=== PATIENT | female | born 1955 | race Caucasian/White ===

== ENCOUNTER → 2019-02-19 | Day surgery (SDC) | payer MEDICARE ==
[~2019-02-19] MED LIST: ALLEGRA; ALLEGRA-D 24 H1 EACH PO; AMBIEN5 MG PO; AMLODIPINE BESYL5 MG PO; BENTYL10 MG PO; CHLORDIAZEPOXI1 EACH PO; COLESTIPOL HCL1 GM PO; CYCLOBENZAPRINE10 MG PO; ESTRACE1 MG PO; ESTRADIOL1 MG PO; FENTANYL CITRATE/PF 100MCG/2 ML INJ ONE; FINACEA50 GM TOP; FUROSEMIDE40 MG PO; HYOSCYAMINE 0.125 MG TAB ONE; LANTUS SC; LISINOPRIL-HCT1 EACH; LISINOPRIL10 MG PO; MELOXICAM7.5 MG PO; METFORMIN HCL500 MG PO; MIDAZOLAM HCL 2 MG/2 ML VIAL ONE; MONODOX PO; MUCINEX D ER T1 EAC1; MUCINEX DM ER1 EACH PO; NEXIUM PO; NEXIUM40 MG PO; ONDANSETRON HCL INJ 2MG/ML 2ML 2 MG/ML VIAL ONE; POTASSIUM PO; PROPOFOL IV EMULSION 10 MG/ML 50 ML VIAL ONE; SIMETHICONE 40 MG/0.6 ML BTL ONE; SPIRONOLACTONE25 MG PO; SUCRALFATE1 GM PO; SUMATRIPTAN SUC25 MG PO; TYLENOL PO; VALACYCLOVIR500 MG PO; ZOLPIDEM TARTRA10 MG PO
[2019-02-19 09:50] VITALS: BP 106/53
--- NOTE | 2019-02-19 17:22 | Operative Report ---
DATE OF PROCEDURE: 02/19/2019 SURGEON: Akhil Whitaker MD PROCEDURE: Colonoscopy and polypectomy note. INDICATIONS FOR COLONOSCOPY: Surveillance colonoscopy, personal history of colon polyps. MEDICATIONS: The patient was done under MAC, please see anesthesiologist's note. PROCEDURE IN DETAIL: With the patient in left lateral decubitus position, a flexible fiberoptic Olympus colonoscope was inserted into the rectum with ease and advanced all the way to the cecum. A minute polyp was removed per cold biopsy forceps from the cecum. The scope was then withdrawn slowly. The ascending colon appeared to be within normal limits. A minute polyp was hot biopsied from the transverse colon. The descending, sigmoid, and rectum appeared to be within normal limits. The scope was then retroflexed into the distal rectum and small internal hemorrhoids were noted, none of which was actively bleeding. The scope was then straightened out, it was subsequently withdrawn, the patient tolerated procedure well. IMPRESSION: 1. Cecal polyp, minute, cold biopsied. 2. Transverse colon polyp, hot biopsied. 3. Internal hemorrhoids, none actively bleeding. PLAN: Follow up histology. Initiate high-fiber, low-fat diet. Initiate high-fiber supplement. The patient might benefit from a followup colonoscopy in 5 years. Akhil Whitaker MD [facility] [place] /[id number] cc: Bobby Toussaint MD
--- OUTSIDE RECORDS SUMMARY | 2019-02-26 11:49 | XMS REPORT ---
Author Author [facility] Address Unknown Phone Unavailable Care Team Providers Care Chemical Dependency Therapist Name Role Phone JENNIFER STERLING Unavailable Unavailable Problems This patient has no known problems. Allergies, Adverse Reactions, Alerts This patient has no known allergies or adverse reactions. Medications This patient has no known medications. Results Test Description Test Time Test Comments Text Results Atomic Results Result Comments MRI MRCP [facility] 2019-01-07 15:00:00 [place] [address] Patient Name: SE OLIVA MR #: [id number] : 1955 Age/Sex: 63/F Req #: [id number] Adm Physician: Ordered by: JENNIFER STERLING MD Report #: [id number] Location: MRI Room/Bed: Procedure: [id number] MRI/MRI MRCP [facility] Exam Date: Exam Time: REPORT STATUS: Signed EXAM: MRI MRCP [facility] DATE: 01/06/2019 8:10 AM INDICATION: Abdominal CT. COMPARISON: None available. TECHNIQUE: Multi planar, multi sequential MRI images of the abdomen were obtained before and after administration of 17 mL of MultiHance. MRCP images were obtained. FINDINGS: Lung bases are unremarkable. Mild hepatic parenchymal signal loss on out of phase imaging, suggestive of mild steatosis. Hepatomegaly. No hepatic mass. Gallbladder is surgically absent. Moderate common bile duct dilatation, up to 1.6 cm, likely due to postcholecystectomy reservoir effect. Gradual distal tapering without evidence of filling defects. 2.6 x 2.4 cm proximal pancreatic tail T2 hyperintense, T1 hypointense lesion with thin internal septations without gross evidence of postcontrast enhancement. Communication with main pancreatic duct is questionable and cannot be determined with certainty. No pancreatic ductal dilatation. Spleen, adrenal glands, and kidneys are unremarkable. No renal mass. No hydronephrosis. Visualized bowel loops are unremarkable. No evidence of bowel obstruction. No upper abdominal free fluid or lymphadenopathy. The soft tissues and bones are unremarkable. IMPRESSION: 1. Proximal pancreatic tail cystic lesion, measuring 2.6 cm. Differentials include serous cystic neoplasm, side branch IPMN, pseudocyst with history of pancreatitis, and less likely mucinous cystic neoplasm. 2. Enlarged steatotic liver. Signed by: Dr. Stanislav Mcconnell MD on 01/07/2019 3:22 PM Dictated By: STANISLAV MCCONNELL MD 1522 Transcribed By: RIGO on 01/07/19 1522 COPY TO: JENNIFER STERLING MD
== END | disposition home or self-care (01) ==
LOC: OR 05:56
PROVIDERS: ATTEND Internal Medicine Gastroenterology
DX: K52.9 Noninfective gastroenteritis and colitis, unspecified (principal); D12.0 Benign neoplasm of cecum; K29.70 Gastritis, unspecified, without bleeding; K20.9 Esophagitis, unspecified; K64.8 Other hemorrhoids; K21.9 Gastro-esophageal reflux disease without esophagitis; I10 Essential (primary) hypertension; J45.909 Unspecified asthma, uncomplicated; E11.9 Type 2 diabetes mellitus without complications; Z88.1 Allergy status to other antibiotic agents; Z88.0 Allergy status to penicillin; Z88.2 Allergy status to sulfonamides; Z01.810 Encounter for preprocedural cardiovascular examination; Z79.4 Long term (current) use of insulin; Z87.891 Personal history of nicotine dependence
CPT/HCPCS: 36415; 45380; 45384; 82948; 88305; 93005; J2250; J2405; J3010; 45378

== ENCOUNTER → 2019-10-27 | Outpatient (CLI) | payer MEDICARE, OTHER ==
[~2019-10-27] MED LIST changes: +GADOBENATE DIMEGLUMINE 1 ML IV ONE; -HYOSCYAMINE 0.125 MG TAB ONE; +LACTATED RINGER'S 1,000 ML ONE; -MIDAZOLAM HCL 2 MG/2 ML VIAL ONE; +MIDAZOLAM HCL 5 MG/ML VIAL ONE; -ONDANSETRON HCL INJ 2MG/ML 2ML 2 MG/ML VIAL ONE; -PROPOFOL IV EMULSION 10 MG/ML 50 ML VIAL ONE; -SIMETHICONE 40 MG/0.6 ML BTL ONE; +SODIUM CHLORIDE 0.9% 50ML 50 ML ONE
[2019-10-27 11:49] LABS: BASOPHILS # (AUTO) 0.1 (0.0-0.1); BASOPHILS % 0.5 % (0.0-1.0); EOSINOPHILS # (AUTO) 0.5 (0.0-0.4); EOSINOPHILS % 5.5 % (0.0-6.0); HEMATOCRIT 43.1 % (34.2-44.1); HEMOGLOBIN 13.9 g/dL (12.0-16.0); LYMPHOCYTES # (AUTO) 3.2 (1.0-3.2); LYMPHOCYTES % 34.6 % (18.0-39.1); MEAN CORPUSCULAR HEMOGLOBIN 27.1 pg (28-32); MEAN CORPUSCULAR HGB CONC 32.3 g/dL (31-35); MONOCYTES # (AUTO) 0.7 (0.2-0.8); MONOCYTES % 7.8 % (4.4-11.3); NEUTROPHILS # (AUTO) 4.8 (2.1-6.9); NEUTROPHILS % 51.3 % (38.7-80.0); PLATELET COUNT 401 x10e3/uL (140-360); RED BLOOD COUNT 5.13 x10e6/uL (3.6-5.1); RED CELL DISTRIBUTION WIDTH 13.7 % (11.7-14.4)
[2019-10-27 12:06] LABS: ANION GAP 14.2 mmol/L (8-16); BLOOD UREA NITROGEN 8 mg/dL (7-26); BUN/CREATININE RATIO 9 (6-25); CARBON DIOXIDE 23 mmol/L (22-29); CHLORIDE 105 mmol/L (98-107); CREATININE, SERUM 0.89 mg/dL (0.57-1.11); EST GLOMERULAR FILTRATION RATE > 60 ML/MIN (60-); GLUCOSE 153 mg/dL (74-118); POTASSIUM 4.2 mmol/L (3.5-5.1); SODIUM 138 mmol/L (136-145)
--- NOTE | 2019-10-27 12:08 | Diagnostic Imaging Report ---
Exam: CHEST 2 VIEWS Date: 10/27/2019 12:04 PM Indication: Preoperative evaluation for anesthesia Comparison: None FINDINGS: Lines/Tubes:None Lungs:The lungs are well inflated. No focal consolidation or pulmonary edema. Pleura:No pleural effusion. No pneumothorax. Heart/Mediastinum:The cardiomediastinal silhouette is normal in size and contour. Bones/Soft Tissues: No acute osseous abnormality. Mild multilevel degenerative changes of the spine are noted. Upper abdomen: Cholecystectomy clips are noted in the right upper quadrant. IMPRESSION: Negative for acute intrathoracic process. Signed by: Ulysses Chino MD on 10/27/2019 12:05 PM
--- NOTE | 2019-10-27 14:48 | Diagnostic Imaging Report ---
EXAM: MRI of the abdomen with and without contrast with MRCP INDICATION: Pancreatic cyst. COMPARISON: 01/06/2019. TECHNIQUE: Multiplanar and multisequence imaging was performed of the abdomen. T1 and T2-weighted images were obtained with and without contrast. T1-weighted in and [id number] , Dynamic, post gadolinium T1-weighted spoiled gradient echo scans. 17 cc of gadolinium were administered intravenously. M.R.C.P. technique: Multiplanar, multisequence MRCP was performed, with sequences including coronal turbo spin-echo T1-weighted scans, [facility] MRCP scans, coronal spin, coronal MPR 2[facility], [facility] MRCP [place]. Discussion: LOWER THORAX: Unremarkable. HEPATOBILIARY: There is diffuse loss of signal on out of phase images, consistent with diffuse hepatic steatosis. No focal hepatic lesions. Prominence of the common bile duct measuring up to 1.6 cm likely related to reservoir effect from postcholecystectomy state.. There is normal tapering at ampulla. No filling defect. No intrahepatic biliary ductal dilation. GALLBLADDER: Status post cholecystectomy. SPLEEN: No splenomegaly. PANCREAS: Pancreas demonstrates normal T1 signal intensity and enhancement. Stable 3 x 2.6 x 2.8 cm cystic focus within the proximal pancreatic tail containing multiple internal septations. It is indeterminate whether the lesion communicates with the main pancreatic duct.No pancreatic duct dilation. There is no enhancing nodule. ADRENALS: No adrenal nodules KIDNEYS/URETERS: Kidneys enhance symmetrically. No hydronephrosis. No cystic or solid mass lesions. No stones. GI TRACT: No abnormal distention, wall thickening, or evidence of bowel obstruction. Appendix is normal. LYMPH NODES: No lymphadenopathy. VESSELS: Unremarkable. PERITONEUM / RETROPERITONEUM: No free air or fluid. BONES: Unremarkable. SOFT TISSUES: Unremarkable. IMPRESSION: 3 cm cystic lesion in the proximal pancreatic body, not significantly changed in size since December 2018. Signed by: Shahid Ledbetter MD on 10/27/2019 2:45 PM
== END ==
LOC: MRI 11:20
PROVIDERS: ATTEND Internal Medicine Gastroenterology
DX: K86.2 Cyst of pancreas (principal); Z11.59 Encounter for screening for other viral diseases
CPT/HCPCS: 36415; 71046; 74183; 80048; 82948; 85025; 93005; A9577; J7121; U0002

== ENCOUNTER 2019-11-25 19:15 | Inpatient (IN) | payer BC, MEDICARE ==
[~2019-11-25] VITALS: Ht 162.6 cm; Wt 76.2 kg
[~2019-11-25 19:15] MED LIST changes: -CARAFATE1 GM/10 ML PO; -COLACE100 MG PO; -FENTANYL CITRATE/PF 100MCG/2 ML INJ ONE; -LANTUS 3ML100 UNITS/ SC; -LIDOCAINE HCL 2% LOCAL INJ 5 ML SDV VIAL INJ ONE; -METRONIDAZOLE500 MG PO; -MIDAZOLAM HCL 2 MG/2 ML VIAL ONE; -ONDANSETRON HCL INJ 2MG/ML 2ML 2 MG/ML VIAL ONE; -PANTOPRAZOLE 40 MG 10ML VIAL ONE; -PANTOPRAZOLE SO40 MG PO; -PROPOFOL IV EMULSION 10 MG/ML 20 ML VIAL ONE; -TYLENOL # 31 EA PO; -TYLENOL325 M2 PO; -ZOFRAN4 MG PO
[2019-11-25] MEDS ORDERED: PANTOPRAZOLE 40 MG 10ML VIAL IV STA (20:08)
[2019-11-25] MEDS ORDERED: MORPHINE SULFATE 2 MG/ML SYR 1ML IV STA (20:08)
[2019-11-25] MEDS ORDERED: ONDANSETRON HCL INJ 2MG/ML 2ML 2 MG/ML VIAL IV STA (20:08)
[2019-11-25 20:24] LABS: BASOPHILS # (AUTO) 0.1 (0.0-0.1); BASOPHILS % 0.3 % (0.0-1.0); EOSINOPHILS % 0.1 % (0.0-6.0); HEMATOCRIT 41.5 % (34.2-44.1); HEMOGLOBIN 13.7 g/dL (12.0-16.0); LYMPHOCYTES # (AUTO) 1.4 (1.0-3.2); LYMPHOCYTES % 7.9 % (18.0-39.1); MEAN CORPUSCULAR HEMOGLOBIN 27.2 pg (28-32); MEAN CORPUSCULAR VOLUME 82.3 fL (81-99); MONOCYTES # (AUTO) 0.7 (0.2-0.8); NEUTROPHILS # (AUTO) 15.5 (2.1-6.9); NEUTROPHILS % 87.2 % (38.7-80.0); PLATELET COUNT 403 x10e3/uL (140-360); RED BLOOD COUNT 5.04 x10e6/uL (3.6-5.1); RED CELL DISTRIBUTION WIDTH 13.9 % (11.7-14.4)
[2019-11-25 20:35] LABS: INR 0.87; PROTHROMBIN TIME 12.3 seconds (11.9-14.5)
[2019-11-25 20:36] LABS: PARTIAL THROMBOPLASTIN TIME 23.6 seconds (23.8-35.5)
[2019-11-25] MEDS: SODIUM CHLORIDE 0.9% 1000ML 1,000 ML IV SCH ×2 (20:39→23:46)
[2019-11-25 20:45] LABS: ALBUMIN 4.3 g/dL (3.5-5.0); ALBUMIN/GLOBULIN RATIO 1.4 (0.8-2.0); ANION GAP 17.6 mmol/L (8-16); CALCIUM 9.3 mg/dL (8.4-10.2); CREATININE, SERUM 1.17 mg/dL (0.57-1.11); POTASSIUM 4.6 mmol/L (3.5-5.1)
[2019-11-25 20:53] LABS: CREATINE KINASE MB 1.7 ng/mL (0-5.0)
[2019-11-25] MEDS ORDERED: DICYCLOMINE HCL 20 MG/2 ML VIAL IM ONE (22:15)
[2019-11-25] MEDS ORDERED: IOPAMIDOL 370 MG/ML 200 ML INFUS..BTL INJ ONE (22:23)
[2019-11-25] MEDS ORDERED: SODIUM CHLORIDE 0.9% 100 ML ONE (22:23)
[2019-11-25] MEDS: CEFTRIAXONE SOD 1 GM/NS 50 ML 50 ML IV SCH (23:46)
[2019-11-26] VITALS (10 sets, daily range): BP systolic 148–175; BP diastolic 61–70
[2019-11-26] MEDS: METRONIDAZOLE 500MG/NS 100ML 100 ML IV SCH ×5 (00:35→22:58)
[2019-11-26] MEDS ORDERED: HYDROMORPHONE 1MG/1ML INJ IV STA (01:02)
[2019-11-26] MEDS ORDERED: CARAFATE1 GM/10 ML PO (01:10)
[2019-11-26] MEDS ORDERED: COLESTIPOL HCL1 GM PO (01:10)
[2019-11-26] MEDS ORDERED: FUROSEMIDE40 MG PO (01:10)
[2019-11-26] MEDS ORDERED: LANTUS 3ML100 UNITS/ SC (01:10)
[2019-11-26] MEDS ORDERED: COLACE100 MG PO (01:10)
[2019-11-26] MEDS: ONDANSETRON HCL INJ 2MG/ML 2ML 2 MG/ML VIAL IV PRN ×2 (02:07→21:43)
[2019-11-26 05:56] LABS: HEMATOCRIT 39.1 % (34.2-44.1); HEMOGLOBIN 12.8 g/dL (12.0-16.0)
[2019-11-26] MEDS: SODIUM CHLORIDE 0.9% 1000ML 1,000 ML IV SCH ×4 (06:15→21:40)
[2019-11-26 06:19] LABS: ALANINE AMINOTRANSFERASE 23 IU/L (0-55); ALBUMIN 4.2 g/dL (3.5-5.0); ALBUMIN/GLOBULIN RATIO 1.7 (0.8-2.0); ALKALINE PHOSPHATASE 64 IU/L (40-150); ANION GAP 12.3 mmol/L (8-16); BLOOD UREA NITROGEN 8 mg/dL (7-26); BUN/CREATININE RATIO 10 (6-25); CALCIUM 8.9 mg/dL (8.4-10.2); CARBON DIOXIDE 19 mmol/L (22-29); CHLORIDE 106 mmol/L (98-107); CREATININE, SERUM 0.78 mg/dL (0.57-1.11); EST GLOMERULAR FILTRATION RATE > 60 ML/MIN (60-); GLUCOSE 180 mg/dL (74-118); POTASSIUM 4.3 mmol/L (3.5-5.1); SODIUM 133 mmol/L (136-145)
[2019-11-26] MEDS: HYDROCODONE/APAP 5MG-325MG TAB PO PRN ×3 (06:40→21:44)
[2019-11-26] MEDS ORDERED: DEXTROSE 50% SYRINGE 50 ML IV PRN (09:15)
[2019-11-26] MEDS: PANTOPRAZOLE 40 MG 10ML VIAL IV SCH (09:34)
[2019-11-26] MEDS: LISINOPRIL 20 MG TAB PO SCH (09:34)
[2019-11-26 12:24] LABS: HEMATOCRIT 39.1 % (34.2-44.1); HEMOGLOBIN 12.9 g/dL (12.0-16.0)
[2019-11-26] MEDS: INSULIN REGULAR, HUMAN 100 UNIT/1 ML 3ML VIAL SQ SCH ×3 (12:30→19:58)
[2019-11-26] MEDS: AMLODIPINE BESYLATE 10 MG TAB PO SCH (19:51)
[2019-11-26 21:00] LABS: HEMATOCRIT 37.9 % (34.2-44.1); HEMOGLOBIN 12.5 g/dL (12.0-16.0)
[2019-11-26] MEDS: CEFTRIAXONE SOD 1 GM/NS 50 ML 50 ML IV SCH (21:55)
[2019-11-26] MEDS ORDERED: CITRATE OF MAGNESIA 300ML BOTTLE PO ONE (22:45)
[2019-11-27] VITALS (10 sets, daily range): BP systolic 129–155; BP diastolic 60–73
[2019-11-27 00:47] LABS: BASOPHILS % 0.2 % (0.0-1.0); EOSINOPHILS # (AUTO) 0.1 (0.0-0.4); EOSINOPHILS % 0.5 % (0.0-6.0); HEMATOCRIT 37.4 % (34.2-44.1); HEMOGLOBIN 12.3 g/dL (12.0-16.0); LYMPHOCYTES # (AUTO) 3.4 (1.0-3.2); LYMPHOCYTES % 18.3 % (18.0-39.1); MEAN CORPUSCULAR HEMOGLOBIN 27.2 pg (28-32); MEAN CORPUSCULAR HGB CONC 32.9 g/dL (31-35); MEAN CORPUSCULAR VOLUME 82.7 fL (81-99); MONOCYTES # (AUTO) 1.7 (0.2-0.8); MONOCYTES % 9.3 % (4.4-11.3); NEUTROPHILS % 71.1 % (38.7-80.0); PLATELET COUNT 332 x10e3/uL (140-360); RED BLOOD COUNT 4.52 x10e6/uL (3.6-5.1); RED CELL DISTRIBUTION WIDTH 14.1 % (11.7-14.4)
[2019-11-27] MEDS ORDERED: BISACODYL 5 MG TAB EC PO ONE ×2 (01:00)
[2019-11-27 01:04] LABS: ANION GAP 11.7 mmol/L (8-16); BLOOD UREA NITROGEN 5 mg/dL (7-26); BUN/CREATININE RATIO 7 (6-25); CALCIUM 8.8 mg/dL (8.4-10.2); CARBON DIOXIDE 20 mmol/L (22-29); CHLORIDE 105 mmol/L (98-107); CREATININE, SERUM 0.68 mg/dL (0.57-1.11); EST GLOMERULAR FILTRATION RATE > 60 ML/MIN (60-); GLUCOSE 156 mg/dL (74-118); POTASSIUM 3.7 mmol/L (3.5-5.1); SODIUM 133 mmol/L (136-145)
[2019-11-27] MEDS: HYDROCODONE/APAP 5MG-325MG TAB PO PRN ×4 (03:50→22:08)
[2019-11-27] MEDS ORDERED: CITRATE OF MAGNESIA 300ML BOTTLE PO ONE (05:00)
[2019-11-27] MEDS: METRONIDAZOLE 500MG/NS 100ML 100 ML IV SCH ×3 (05:00→17:26)
[2019-11-27] MEDS: SODIUM CHLORIDE 0.9% 1000ML 1,000 ML IV SCH ×2 (05:55→16:21)
[2019-11-27 06:53] LABS: BASOPHILS # (AUTO) 0.1 (0.0-0.1); BASOPHILS % 0.4 % (0.0-1.0); EOSINOPHILS # (AUTO) 0.1 (0.0-0.4); EOSINOPHILS % 0.7 % (0.0-6.0); HEMOGLOBIN 11.6 g/dL (12.0-16.0); LYMPHOCYTES # (AUTO) 2.3 (1.0-3.2); LYMPHOCYTES % 15.1 % (18.0-39.1); MEAN CORPUSCULAR HEMOGLOBIN 28.2 pg (28-32); MEAN CORPUSCULAR HGB CONC 33.1 g/dL (31-35); MONOCYTES # (AUTO) 1.3 (0.2-0.8); MONOCYTES % 8.4 % (4.4-11.3); NEUTROPHILS # (AUTO) 11.6 (2.1-6.9); NEUTROPHILS % 75.1 % (38.7-80.0); PLATELET COUNT 268 x10e3/uL (140-360); RED BLOOD COUNT 4.12 x10e6/uL (3.6-5.1); RED CELL DISTRIBUTION WIDTH 14.2 % (11.7-14.4)
[2019-11-27] MEDS: INSULIN REGULAR, HUMAN 100 UNIT/1 ML 3ML VIAL SQ SCH ×4 (07:30→21:00)
[2019-11-27] MEDS: LISINOPRIL 20 MG TAB PO SCH (09:41)
[2019-11-27] MEDS: PANTOPRAZOLE 40 MG 10ML VIAL IV SCH (09:41)
[2019-11-27 10:05] LABS: WBC,FECAL (FECAL LACTOFERRIN) POSITIVE (NEGATIVE)
[2019-11-27 14:37] LABS: C DIFFICILE TOXIN A&B AMP PROB NEGATIVE (NEGATIVE)
[2019-11-27] MEDS: HYDROCHLOROTHIAZIDE 25 MG TAB PO SCH (21:51)
[2019-11-27] MEDS: AMLODIPINE BESYLATE 10 MG TAB PO SCH (21:51)
[2019-11-27] MEDS: CEFTRIAXONE SOD 1 GM/NS 50 ML 50 ML IV SCH (21:53)
[2019-11-27] MEDS: ONDANSETRON HCL INJ 2MG/ML 2ML 2 MG/ML VIAL IV PRN (22:08)
[2019-11-28] VITALS (11 sets, daily range): BP systolic 116–135; BP diastolic 57–82
[2019-11-28] MEDS: METRONIDAZOLE 500MG/NS 100ML 100 ML IV SCH ×4 (04:46→17:36)
[2019-11-28] MEDS: ONDANSETRON HCL INJ 2MG/ML 2ML 2 MG/ML VIAL IV PRN ×2 (06:19→20:11)
[2019-11-28] MEDS: HYDROCODONE/APAP 5MG-325MG TAB PO PRN ×3 (06:19→20:10)
[2019-11-28 07:19] LABS: BASOPHILS % 0.3 % (0.0-1.0); EOSINOPHILS # (AUTO) 0.4 (0.0-0.4); EOSINOPHILS % 3.2 % (0.0-6.0); HEMATOCRIT 34.2 % (34.2-44.1); HEMOGLOBIN 11.1 g/dL (12.0-16.0); LYMPHOCYTES # (AUTO) 2.5 (1.0-3.2); MEAN CORPUSCULAR HEMOGLOBIN 27.2 pg (28-32); MEAN CORPUSCULAR HGB CONC 32.5 g/dL (31-35); MEAN CORPUSCULAR VOLUME 83.8 fL (81-99); MONOCYTES % 8.6 % (4.4-11.3); NEUTROPHILS % 66.4 % (38.7-80.0); PLATELET COUNT 272 x10e3/uL (140-360); RED BLOOD COUNT 4.08 x10e6/uL (3.6-5.1)
[2019-11-28] MEDS: INSULIN REGULAR, HUMAN 100 UNIT/1 ML 3ML VIAL SQ SCH ×4 (07:30→20:11)
[2019-11-28] MEDS: HYDROCHLOROTHIAZIDE 25 MG TAB PO SCH (09:35)
[2019-11-28] MEDS: LISINOPRIL 20 MG TAB PO SCH (09:35)
[2019-11-28] MEDS: PANTOPRAZOLE 40 MG 10ML VIAL IV SCH (09:35)
[2019-11-28] MEDS ORDERED: SODIUM CHLORIDE 0.9% 1000ML 1,000 ML IV SCH (17:15)
[2019-11-28] MEDS: AMLODIPINE BESYLATE 10 MG TAB PO SCH (20:11)
[2019-11-28] MEDS: CEFTRIAXONE SOD 1 GM/NS 50 ML 50 ML IV SCH (23:26)
[2019-11-29] VITALS (11 sets, daily range): BP systolic 113–146; BP diastolic 51–67
[2019-11-29] MEDS: METRONIDAZOLE 500MG/NS 100ML 100 ML IV SCH ×4 (00:38→17:37)
[2019-11-29] MEDS: HYDROCODONE/APAP 5MG-325MG TAB PO PRN ×2 (02:01→20:11)
[2019-11-29 06:18] LABS: BASOPHILS # (AUTO) 0.1 (0.0-0.1); BASOPHILS % 0.7 % (0.0-1.0); EOSINOPHILS # (AUTO) 0.5 (0.0-0.4); EOSINOPHILS % 4.9 % (0.0-6.0); HEMATOCRIT 33.5 % (34.2-44.1); HEMOGLOBIN 11.1 g/dL (12.0-16.0); LYMPHOCYTES # (AUTO) 2.4 (1.0-3.2); LYMPHOCYTES % 26.2 % (18.0-39.1); MEAN CORPUSCULAR HEMOGLOBIN 27.1 pg (28-32); MEAN CORPUSCULAR HGB CONC 33.1 g/dL (31-35); MEAN CORPUSCULAR VOLUME 81.9 fL (81-99); MONOCYTES # (AUTO) 0.9 (0.2-0.8); NEUTROPHILS # (AUTO) 5.3 (2.1-6.9); NEUTROPHILS % 57.7 % (38.7-80.0); PLATELET COUNT 286 x10e3/uL (140-360); RED BLOOD COUNT 4.09 x10e6/uL (3.6-5.1); RED CELL DISTRIBUTION WIDTH 13.7 % (11.7-14.4)
[2019-11-29 06:43] LABS: ANION GAP 14.2 mmol/L (8-16); BLOOD UREA NITROGEN < 5 mg/dL (7-26); BUN/CREATININE RATIO 8 (6-25); CALCIUM 8.7 mg/dL (8.4-10.2); CARBON DIOXIDE 22 mmol/L (22-29); CHLORIDE 102 mmol/L (98-107); CREATININE, SERUM 0.66 mg/dL (0.57-1.11); EST GLOMERULAR FILTRATION RATE > 60 ML/MIN (60-); GLUCOSE 144 mg/dL (74-118); POTASSIUM 3.2 mmol/L (3.5-5.1); SODIUM 135 mmol/L (136-145)
[2019-11-29] MEDS: INSULIN REGULAR, HUMAN 100 UNIT/1 ML 3ML VIAL SQ SCH ×4 (07:30→21:00)
[2019-11-29] MEDS: PANTOPRAZOLE 40 MG 10ML VIAL IV SCH (08:38)
[2019-11-29] MEDS: LISINOPRIL 20 MG TAB PO SCH (08:38)
[2019-11-29] MEDS: HYDROCHLOROTHIAZIDE 25 MG TAB PO SCH (08:38)
[2019-11-29] MEDS ORDERED: POTASSIUM CHLORIDE 20 MEQ TAB CR PO ONE (13:30)
[2019-11-29] MEDS: AMLODIPINE BESYLATE 10 MG TAB PO SCH (20:21)
[2019-11-29] MEDS: CEFTRIAXONE SOD 1 GM/NS 50 ML 50 ML IV SCH (23:00)
[2019-11-30] VITALS (8 sets, daily range): BP systolic 122–153; BP diastolic 54–88
[2019-11-30] MEDS ORDERED: CITRATE OF MAGNESIA 300ML BOTTLE PO ONE ×2 (05:00→07:00)
[2019-11-30] MEDS: METRONIDAZOLE 500MG/NS 100ML 100 ML IV SCH ×4 (06:00→18:00)
[2019-11-30 06:18] LABS: BASOPHILS % 0.6 % (0.0-1.0); EOSINOPHILS # (AUTO) 0.4 (0.0-0.4); EOSINOPHILS % 5.2 % (0.0-6.0); HEMATOCRIT 33.5 % (34.2-44.1); HEMOGLOBIN 10.9 g/dL (12.0-16.0); LYMPHOCYTES # (AUTO) 2.4 (1.0-3.2); LYMPHOCYTES % 34.3 % (18.0-39.1); MEAN CORPUSCULAR HEMOGLOBIN 26.8 pg (28-32); MEAN CORPUSCULAR HGB CONC 32.5 g/dL (31-35); MEAN CORPUSCULAR VOLUME 82.5 fL (81-99); MONOCYTES # (AUTO) 0.8 (0.2-0.8); MONOCYTES % 11.7 % (4.4-11.3); NEUTROPHILS # (AUTO) 3.3 (2.1-6.9); NEUTROPHILS % 47.6 % (38.7-80.0); PLATELET COUNT 306 x10e3/uL (140-360); RED BLOOD COUNT 4.06 x10e6/uL (3.6-5.1); RED CELL DISTRIBUTION WIDTH 13.9 % (11.7-14.4)
[2019-11-30] MEDS ORDERED: BISACODYL 5 MG TAB EC PO ONE ×4 (06:30→07:00)
[2019-11-30 06:37] LABS: ANION GAP 12.5 mmol/L (8-16); BLOOD UREA NITROGEN < 5 mg/dL (7-26); CARBON DIOXIDE 24 mmol/L (22-29); CHLORIDE 106 mmol/L (98-107); CREATININE, SERUM 0.68 mg/dL (0.57-1.11); EST GLOMERULAR FILTRATION RATE > 60 ML/MIN (60-); GLUCOSE 115 mg/dL (74-118); MAGNESIUM 1.7 MG/DL (1.3-2.1); PHOSPHORUS 3.6 MG/DL (2.3-4.7); POTASSIUM 3.5 mmol/L (3.5-5.1); SODIUM 139 mmol/L (136-145)
[2019-11-30 06:38] LABS: BUN/CREATININE RATIO 7 (6-25)
[2019-11-30] MEDS: INSULIN REGULAR, HUMAN 100 UNIT/1 ML 3ML VIAL SQ SCH ×4 (07:30→21:00)
[2019-11-30] MEDS: HYDROCHLOROTHIAZIDE 25 MG TAB PO SCH (09:00)
[2019-11-30] MEDS: LISINOPRIL 20 MG TAB PO SCH (09:00)
[2019-11-30] MEDS: PANTOPRAZOLE 40 MG 10ML VIAL IV SCH (09:32)
[2019-11-30] MEDS: ONDANSETRON HCL INJ 2MG/ML 2ML 2 MG/ML VIAL IV PRN (09:32)
[2019-11-30] MEDS ORDERED: MIDAZOLAM HCL 2 MG/2 ML VIAL ONE (13:12)
[2019-11-30] MEDS ORDERED: FENTANYL CITRATE/PF 100MCG/2 ML INJ ONE (13:12)
[2019-11-30] MEDS ORDERED: ACETAMINOPHEN 325 MG TAB PO PRN (13:45)
[2019-11-30] MEDS ORDERED: HYDRALAZINE HCL 20 MG/ML VIAL IV PRN (13:45)
[2019-11-30 15:21] LABS: WBC,FECAL (FECAL LACTOFERRIN) NEGATIVE (NEGATIVE)
[2019-11-30] MEDS ORDERED: LIDOCAINE HCL 2% LOCAL INJ 5 ML SDV VIAL INJ ONE (19:16)
[2019-11-30] MEDS ORDERED: PROPOFOL IV EMULSION 10 MG/ML 20 ML VIAL ONE (19:16)
[2019-11-30] MEDS: AMLODIPINE BESYLATE 10 MG TAB PO SCH (20:58)
[2019-11-30] MEDS: HYDROCODONE/APAP 5MG-325MG TAB PO PRN (21:30)
[2019-11-30] MEDS: CEFTRIAXONE SOD 1 GM/NS 50 ML 50 ML IV SCH (23:00)
[2019-12-01] VITALS: BP 132/70
[2019-12-01] MEDS: HYDROCODONE/APAP 5MG-325MG TAB PO PRN ×3 (03:09→12:21)
[2019-12-01 04:00] VITALS: BP 129/57
[2019-12-01] MEDS: METRONIDAZOLE 500MG/NS 100ML 100 ML IV SCH ×3 (05:50→11:54)
[2019-12-01 06:12] LABS: BASOPHILS % 0.5 % (0.0-1.0); EOSINOPHILS # (AUTO) 0.3 (0.0-0.4); EOSINOPHILS % 4.9 % (0.0-6.0); HEMATOCRIT 34.1 % (34.2-44.1); HEMOGLOBIN 11.1 g/dL (12.0-16.0); LYMPHOCYTES # (AUTO) 2.4 (1.0-3.2); LYMPHOCYTES % 36.1 % (18.0-39.1); MEAN CORPUSCULAR HEMOGLOBIN 26.7 pg (28-32); MEAN CORPUSCULAR HGB CONC 32.6 g/dL (31-35); MONOCYTES # (AUTO) 0.8 (0.2-0.8); MONOCYTES % 11.5 % (4.4-11.3); NEUTROPHILS # (AUTO) 3.1 (2.1-6.9); NEUTROPHILS % 46.5 % (38.7-80.0); PLATELET COUNT 329 x10e3/uL (140-360); RED BLOOD COUNT 4.16 x10e6/uL (3.6-5.1); RED CELL DISTRIBUTION WIDTH 13.8 % (11.7-14.4)
[2019-12-01 06:33] LABS: ALANINE AMINOTRANSFERASE 20 IU/L (0-55); ALBUMIN 3.7 g/dL (3.5-5.0); ALBUMIN/GLOBULIN RATIO 1.6 (0.8-2.0); ALKALINE PHOSPHATASE 41 IU/L (40-150); ANION GAP 13.4 mmol/L (8-16); BLOOD UREA NITROGEN 5 mg/dL (7-26); BUN/CREATININE RATIO 7 (6-25); CALCIUM 8.7 mg/dL (8.4-10.2); CARBON DIOXIDE 24 mmol/L (22-29); CHLORIDE 106 mmol/L (98-107); CREATININE, SERUM 0.69 mg/dL (0.57-1.11); EST GLOMERULAR FILTRATION RATE > 60 ML/MIN (60-); GLUCOSE 111 mg/dL (74-118); POTASSIUM 3.4 mmol/L (3.5-5.1); SODIUM 140 mmol/L (136-145)
[2019-12-01] MEDS: INSULIN REGULAR, HUMAN 100 UNIT/1 ML 3ML VIAL SQ SCH ×2 (07:30→11:54)
[2019-12-01 08:12] VITALS: BP 114/58
[2019-12-01 08:27] VITALS: BP 114/58
[2019-12-01] MEDS: PANTOPRAZOLE 40 MG 10ML VIAL IV SCH (09:00)
[2019-12-01] MEDS: HYDROCHLOROTHIAZIDE 25 MG TAB PO SCH (09:00)
[2019-12-01] MEDS: LISINOPRIL 20 MG TAB PO SCH (09:00)
[2019-12-01 11:34] VITALS: BP 119/59
[2019-12-01] MEDS ORDERED: TYLENOL # 31 EA PO (12:13)
[2019-12-01] MEDS ORDERED: PANTOPRAZOLE SO40 MG PO ×2 (12:13→12:37)
[2019-12-01] MEDS ORDERED: METRONIDAZOLE500 MG PO (12:13)
[2019-12-01] MEDS ORDERED: ZOFRAN4 MG PO (12:13)
[2019-12-01] MEDS ORDERED: TYLENOL325 M2 PO (12:27)
[2019-12-01] MEDS ORDERED: POTASSIUM CHLORIDE 20 MEQ TAB CR PO ONE (13:00)
[2019-12-01 14:23] LABS: C DIFFICILE TOXIN A&B AMP PROB NEGATIVE (NEGATIVE)
== END 2019-12-01 14:13 | disposition home or self-care (01) | DRG 872 ==
LOC: ER 20:12 → ERHOLD 23:01 → MED/SURG3 11-26 00:20
PROVIDERS: ADMIT Internal Medicine; ATTEND Internal Medicine
PROC: 0DBM8ZX Excision of Descending Colon, Via Natural or Artificial Opening Endoscopic, Diagnostic (ICD-10-PCS; principal; 2019-11-25)
PROC: 0DBN8ZX Excision of Sigmoid Colon, Via Natural or Artificial Opening Endoscopic, Diagnostic (ICD-10-PCS; 2019-11-25)
DX: A41.9 Sepsis, unspecified organism (principal); K55.9 Vascular disorder of intestine, unspecified; E87.1 Hypo-osmolality and hyponatremia; N17.9 Acute kidney failure, unspecified; K63.3 Ulcer of intestine; A09 Infectious gastroenteritis and colitis, unspecified; E11.9 Type 2 diabetes mellitus without complications; K21.9 Gastro-esophageal reflux disease without esophagitis; I10 Essential (primary) hypertension; E87.6 Hypokalemia; J45.909 Unspecified asthma, uncomplicated; Z11.59 Encounter for screening for other viral diseases; K63.89 Other specified diseases of intestine
CPT/HCPCS: 36415; 43239; 45380; 74174; 80048; 80053; 82550; 82553; 82948; 83630; 83735; 83993; 84100; 84484; 85014; 85018; 85025; 85610; 85730; 86850; 86900; 87045; 87177; 87328; 87493; 88305; 93005; 99251; 99284; J0500; J0696; J1170; J1817; J2001; J2250; J2270; J2405; J3010; J7030; J7050; Q9967; U0002

== ENCOUNTER → 2019-11-25 | Day surgery (SDC) | payer BC, MEDICARE ==
[~2019-11-25] MED LIST changes: +CARAFATE1 GM/10 ML PO; +COLACE100 MG PO; +FARXIGA5 MG PO; -GADOBENATE DIMEGLUMINE 1 ML IV ONE; -LACTATED RINGER'S 1,000 ML ONE; +LANTUS 3ML100 UNITS/ SC; +LIDOCAINE HCL 2% LOCAL INJ 5 ML SDV VIAL INJ ONE; +LISINOPRIL-HCT1 EACH PO; +METRONIDAZOLE500 MG PO; +MIDAZOLAM HCL 2 MG/2 ML VIAL ONE; -MIDAZOLAM HCL 5 MG/ML VIAL ONE; +OMEPRAZOLE40 MG PO; +ONDANSETRON HCL INJ 2MG/ML 2ML 2 MG/ML VIAL ONE; +PANTOPRAZOLE 40 MG 10ML VIAL ONE; +PANTOPRAZOLE SO40 MG PO; +PROMETHAZINE HC25 M1 PO; +PROPOFOL IV EMULSION 10 MG/ML 20 ML VIAL ONE; -SODIUM CHLORIDE 0.9% 50ML 50 ML ONE; +TIZANIDINE HCL4 M1 PO; +TYLENOL # 31 EA PO; +TYLENOL325 M2 PO; +ZOFRAN4 MG PO; +ZOFRAN8 MG PO
[2019-11-25 12:05] VITALS: BP 120/69
--- NOTE | 2019-11-25 12:25 | Operative Report ---
DATE OF PROCEDURE: 11/25/2019 SURGEON: Akhil Whitaker MD PROCEDURE: EGD with biopsies. INDICATIONS FOR EGD: Upper abdominal pain, nausea, heartburn. MEDICATIONS: The patient was done under MAC, please see anesthesiologist's note. PROCEDURE IN DETAIL: With the patient in left lateral decubitus position, flexible fiberoptic Olympus gastroscope was introduced into the esophagus under direct visualization without any difficulty. There was some patchy erythema noted in distal esophagus. A minute tongue of velvety red mucosa was noted to extend proximally from the GE junction that was biopsied to rule out Gifford. The scope was then advanced with ease into the stomach. The mucosa overlying the antrum and the body revealed some patchy erythema and [id number] edema and biopsies were obtained and sent to stain for H. pylori. A minute nodule was noted in the proximal body along the greater curvature that was biopsied. Pylorus was of normal contour and shape, was intubated with ease and the scope, was advanced all the way to the second portion of the duodenum. Biopsies were obtained from the proximal second portion and the duodenal bulb. The scope was then withdrawn back into the stomach and retroflexed mucosa overlying the fundus and cardia appeared to be within normal limits. The scope was then straightened out, it was subsequently withdrawn. The patient tolerated the procedure well. IMPRESSION: 1. Distal esophagitis, mild. 2. Rule out Gifford esophagus. 3. Gastritis, biopsied, biopsies sent to stain for H pylori. 4. Gastric nodule, minute, proximal body, biopsied. 5. Rule out sprue. PLAN: Follow up histology. Continue omeprazole 40 mg one p.o. a.c. b.i.d. Akhil Whitaker MD [facility] [place] /[id number] cc: Renetta Barnes MD
== END | disposition home or self-care (01) ==
LOC: OR 08:50
PROVIDERS: ATTEND Internal Medicine Gastroenterology
DX: K29.50 Unspecified chronic gastritis without bleeding (principal); K31.7 Polyp of stomach and duodenum; K22.70 Barrett's esophagus without dysplasia; K20.9 Esophagitis, unspecified; K31.89 Other diseases of stomach and duodenum; K21.9 Gastro-esophageal reflux disease without esophagitis; J45.909 Unspecified asthma, uncomplicated; I10 Essential (primary) hypertension; Z88.1 Allergy status to other antibiotic agents; Z88.0 Allergy status to penicillin; Z88.2 Allergy status to sulfonamides; Z01.812 Encounter for preprocedural laboratory examination; Z11.59 Encounter for screening for other viral diseases; Z68.30 Body mass index [BMI] 30.0-30.9, adult; Z86.010 Personal history of colon polyps; Z80.0 Family history of malignant neoplasm of digestive organs
CPT/HCPCS: 36415; 43239; 82948; J2001; J2250; J2405; J3010

== ENCOUNTER 2020-01-17 11:03 | Observation (INO) | payer MEDICARE ==
[~2020-01-17] VITALS: Ht 162.6 cm; Wt 76.2 kg
[~2020-01-17 11:03] MED LIST changes: +CARAFATE1 GM/10 ML PO; +COLACE100 MG PO; +LANTUS 3ML100 UNITS/ SC; +METRONIDAZOLE500 MG PO; +PANTOPRAZOLE SO40 MG PO; +TYLENOL # 31 EA PO; +TYLENOL325 M2 PO; +ZOFRAN4 MG PO
[2020-01-17] MEDS ORDERED: MORPHINE SULFATE INJ 4 MG/ML INJ 1ML IV STA (11:36)
[2020-01-17] MEDS ORDERED: SODIUM CHLORIDE 0.9% 1000ML 1,000 ML IV STA (11:36)
[2020-01-17] MEDS ORDERED: ONDANSETRON HCL INJ 2MG/ML 2ML 2 MG/ML VIAL IV ONE (11:45)
[2020-01-17] MEDS ORDERED: FAMOTIDINE 20 MG/2 ML VIAL IV ONE ×2 (11:45→11:52)
[2020-01-17] MEDS ORDERED: MORPHINE SULFATE INJ 4 MG/ML INJ 1ML ONE (11:52)
[2020-01-17] MEDS ORDERED: ONDANSETRON HCL INJ 2MG/ML 2ML 2 MG/ML VIAL ONE (11:52)
[2020-01-17] MEDS ORDERED: SODIUM CHLORIDE 0.9% 1000ML 1,000 ML ONE (11:52)
[2020-01-17] MEDS ORDERED: AMLODIPINE BESY10 MG (12:28)
[2020-01-17] MEDS ORDERED: ZOLPIDEM TARTRAT5 MG (12:28)
[2020-01-17] MEDS ORDERED: OMEPRAZOLE40 MG PO (12:28)
[2020-01-17] MEDS ORDERED: TIZANIDINE HCL4 MG PO (12:28)
[2020-01-17] MEDS ORDERED: ESTRADIOL0.5 MG (12:28)
[2020-01-17] MEDS ORDERED: ONDANSETRON HCL8 MG PO (12:28)
[2020-01-17] MEDS ORDERED: ROSUVASTATIN CA10 MG (12:28)
[2020-01-17] MEDS ORDERED: PROMETHAZINE HC25 M1 PO (12:32)
[2020-01-17] MEDS ORDERED: LANTUS 3ML100 UNITS/ SQ (12:32)
[2020-01-17] MEDS: METRONIDAZOLE 500MG/NS 100ML 100 ML IV SCH ×2 (14:00→20:01)
[2020-01-17] MEDS ORDERED: MORPHINE SULFATE INJ 4 MG/ML INJ 1ML IV PRN (14:00)
[2020-01-17] MEDS ORDERED: DEXTROSE 50% SYRINGE 50 ML IV PRN ×2 (14:00→15:00)
[2020-01-17] MEDS: AZTREONAM 1 GM/NS 50 ML 50 ML IV SCH ×2 (14:00→21:00)
[2020-01-17] MEDS ORDERED: DIPHENHYDRAMINE HCL INJ 50 MG/ML VIAL IV PRN (14:00)
[2020-01-17] MEDS ORDERED: AMLODIPINE BESY10 MG PO (14:00)
[2020-01-17] MEDS ORDERED: ENALAPRILAT IV INJ 1.25 MG/ML VIAL IV PRN (14:00)
[2020-01-17] MEDS: SODIUM CHLORIDE 0.9% 1000ML 1,000 ML IV SCH ×2 (14:00→22:44)
[2020-01-17] MEDS ORDERED: ACETAMINOPHEN 325 MG TAB PO PRN (15:00)
[2020-01-17] MEDS ORDERED: HYDRALAZINE HCL 20 MG/ML VIAL IV PRN (15:00)
[2020-01-17 15:29] VITALS: BP 147/70
[2020-01-17 15:35] VITALS: BP 147/70
[2020-01-17 15:45] VITALS: BP 147/70
[2020-01-17] MEDS ORDERED: INSULIN REGULAR, HUMAN 100 UNIT/1 ML 3ML VIAL SQ SCH (16:30)
[2020-01-17] MEDS: INSULIN LISPRO 100 UNIT/1 ML 3ML VIAL SQ SCH ×2 (16:30→21:00)
[2020-01-17] MEDS: FAMOTIDINE 20 MG/2 ML VIAL IV SCH (16:44)
[2020-01-17 17:07] VITALS: BP 147/70
[2020-01-17] MEDS ORDERED: METRONIDAZOLE 500MG/NS 100ML IV SCH (18:00)
[2020-01-17 19:36] VITALS: BP 147/70
[2020-01-17 19:47] LABS: BASOPHILS # (AUTO) 0.1 (0.0-0.1); BASOPHILS % 0.5 % (0.0-1.0); EOSINOPHILS # (AUTO) 0.2 (0.0-0.4); EOSINOPHILS % 1.7 % (0.0-6.0); HEMATOCRIT 38.8 % (34.2-44.1); HEMOGLOBIN 12.8 g/dL (12.0-16.0); LYMPHOCYTES # (AUTO) 3.4 (1.0-3.2); LYMPHOCYTES % 35.7 % (18.0-39.1); MEAN CORPUSCULAR HEMOGLOBIN 27.4 pg (28-32); MEAN CORPUSCULAR VOLUME 82.9 fL (81-99); MONOCYTES # (AUTO) 0.9 (0.2-0.8); MONOCYTES % 9.7 % (4.4-11.3); PLATELET COUNT 293 x10e3/uL (140-360); RED BLOOD COUNT 4.68 x10e6/uL (3.6-5.1); RED CELL DISTRIBUTION WIDTH 14.6 % (11.7-14.4)
[2020-01-17 20:00] VITALS: BP 149/76
[2020-01-17] MEDS: ONDANSETRON HCL INJ 2MG/ML 2ML 2 MG/ML VIAL IV PRN (20:03)
[2020-01-17 20:09] LABS: ALANINE AMINOTRANSFERASE 22 IU/L (0-55); ALBUMIN 4.1 g/dL (3.5-5.0); ALBUMIN/GLOBULIN RATIO 1.2 (0.8-2.0); ALKALINE PHOSPHATASE 51 IU/L (40-150); ANION GAP 13.9 mmol/L (8-16); BLOOD UREA NITROGEN 9 mg/dL (7-26); BUN/CREATININE RATIO 12 (6-25); CALCIUM 9.8 mg/dL (8.4-10.2); CARBON DIOXIDE 22 mmol/L (22-29); CHLORIDE 106 mmol/L (98-107); CREATININE, SERUM 0.74 mg/dL (0.57-1.11); EST GLOMERULAR FILTRATION RATE > 60 ML/MIN (60-); GLUCOSE 98 mg/dL (74-118); POTASSIUM 3.9 mmol/L (3.5-5.1); SODIUM 138 mmol/L (136-145)
[2020-01-17] MEDS ORDERED: TIZANIDINE HCL 4 MG TAB PO PRN (21:00)
[2020-01-17] MEDS ORDERED: ZOLPIDEM TARTRATE 10 MG TAB PO PRN (21:00)
[2020-01-17] MEDS ORDERED: NON-FORMULARY MEDICATION (Insulin Glargine (Lantus 3ML Pen) 20 UNITS) SQ SCH (21:00)
[2020-01-17] MEDS: INSULIN GLARGINE 100 UNITS/ML VIAL SQ SCH (21:00)
[2020-01-17] MEDS: AMLODIPINE BESYLATE 10 MG TAB PO SCH (21:00)
[2020-01-18] VITALS (9 sets, daily range): BP systolic 113–143; BP diastolic 59–73
[2020-01-18] MEDS: PROMETHAZINE HCL 25 MG TAB PO PRN ×2 (02:03→22:47)
[2020-01-18] MEDS: HYDROCODONE/APAP 7.5MG-325MG 1 EA TAB PO PRN ×4 (02:03→21:45)
[2020-01-18] MEDS: METRONIDAZOLE 500MG/NS 100ML 100 ML IV SCH ×4 (02:03→20:00)
[2020-01-18] MEDS ORDERED: DIATRIZOATE MEGL/DIATRIZOA SOD 30 ML BTL PO ONE (02:09)
[2020-01-18 05:16] LABS: BASOPHILS # (AUTO) 0.1 (0.0-0.1); BASOPHILS % 0.7 % (0.0-1.0); EOSINOPHILS # (AUTO) 0.2 (0.0-0.4); EOSINOPHILS % 2.9 % (0.0-6.0); HEMATOCRIT 36.3 % (34.2-44.1); HEMOGLOBIN 11.9 g/dL (12.0-16.0); LYMPHOCYTES # (AUTO) 2.7 (1.0-3.2); LYMPHOCYTES % 36.2 % (18.0-39.1); MEAN CORPUSCULAR HEMOGLOBIN 27.6 pg (28-32); MEAN CORPUSCULAR HGB CONC 32.8 g/dL (31-35); MEAN CORPUSCULAR VOLUME 84.2 fL (81-99); MONOCYTES # (AUTO) 0.8 (0.2-0.8); MONOCYTES % 10.9 % (4.4-11.3); NEUTROPHILS # (AUTO) 3.7 (2.1-6.9); PLATELET COUNT 283 x10e3/uL (140-360); RED BLOOD COUNT 4.31 x10e6/uL (3.6-5.1); RED CELL DISTRIBUTION WIDTH 14.3 % (11.7-14.4)
[2020-01-18 05:36] LABS: ANION GAP 10.7 mmol/L (8-16); BLOOD UREA NITROGEN 7 mg/dL (7-26); BUN/CREATININE RATIO 10 (6-25); CALCIUM 9.3 mg/dL (8.4-10.2); CARBON DIOXIDE 23 mmol/L (22-29); CHLORIDE 105 mmol/L (98-107); EST GLOMERULAR FILTRATION RATE > 60 ML/MIN (60-); GLUCOSE 134 mg/dL (74-118); POTASSIUM 3.7 mmol/L (3.5-5.1); SODIUM 135 mmol/L (136-145)
[2020-01-18 05:42] LABS: ALBUMIN 3.7 g/dL (3.5-5.0); BILIRUBIN,DIRECT 0.2 mg/dL (0.0-0.5)
[2020-01-18] MEDS ORDERED: IOPAMIDOL 370 MG/ML 200 ML INFUS..BTL INJ ONE (05:53)
[2020-01-18] MEDS ORDERED: SODIUM CHLORIDE 0.9% 50ML 50 ML ONE (05:54)
[2020-01-18 05:59] LABS: % IRON SATURATION 16 % (15-50); IRON 42 ug/dL (50-170); TOTAL IRON BINDING CAPACITY 262 ug/dL (261-478); TRANSFERRIN 187 mg/dL (180-382)
[2020-01-18] MEDS: SODIUM CHLORIDE 0.9% 1000ML 1,000 ML IV SCH ×3 (06:13→22:48)
[2020-01-18] MEDS: INSULIN LISPRO 100 UNIT/1 ML 3ML VIAL SQ SCH ×4 (07:30→21:00)
[2020-01-18] MEDS: AZTREONAM 1 GM/NS 50 ML 50 ML IV SCH ×2 (09:00→21:00)
[2020-01-18] MEDS ORDERED: HYDROCHLOROTHIAZIDE 25 MG TAB PO SCH (09:00)
[2020-01-18] MEDS: LISINOPRIL 20 MG TAB PO SCH (09:17)
[2020-01-18] MEDS: FAMOTIDINE 20 MG/2 ML VIAL IV SCH (09:17)
[2020-01-18] MEDS: PANTOPRAZOLE SOD 40 MG TABEC PO SCH (09:20)
[2020-01-18] MEDS: ONDANSETRON HCL INJ 2MG/ML 2ML 2 MG/ML VIAL IV PRN (13:40)
[2020-01-18 14:25] LABS: WBC,FECAL (FECAL LACTOFERRIN) POSITIVE (NEGATIVE)
[2020-01-18] MEDS: FERROUS SULFATE 325 MG TAB PO SCH ×2 (15:00→20:49)
[2020-01-18 15:01] LABS: C DIFFICILE TOXIN A&B AMP PROB NEGATIVE (NEGATIVE)
[2020-01-18] MEDS: AMLODIPINE BESYLATE 10 MG TAB PO SCH (21:00)
[2020-01-18] MEDS: INSULIN GLARGINE 100 UNITS/ML VIAL SQ SCH (21:00)
[2020-01-19] VITALS: BP 147/67
[2020-01-19] MEDS: METRONIDAZOLE 500MG/NS 100ML 100 ML IV SCH ×2 (02:00→10:00)
[2020-01-19 03:41] LABS: CLARITY,URINE CLEAR (CLEAR); COLOR,URINE YELLOW (YELLOW); KETONES,URINE NEGATIVE (NEGATIVE); LEUKOCYTE ESTERASE ,URINE NEGATIVE (NEGATIVE); NITRITE,URINE NEGATIVE (NEGATIVE); PROTEIN,URINE DIPSTICK NEGATIVE (NEGATIVE); URINE UROBILINOGEN 0.2 mg/dL (0.2 - 1)
[2020-01-19 03:46] LABS: BACTERIA,URINE RARE /HPF; EPITHELIAL CELLS,URINE FEW /LPF; RBC,URINE 0-5 /HPF (0-5); WBC,URINE (MAN) 0-5 /HPF (0-5)
[2020-01-19 04:00] VITALS: BP 148/65
[2020-01-19] MEDS: ONDANSETRON HCL INJ 2MG/ML 2ML 2 MG/ML VIAL IV PRN (05:31)
[2020-01-19 05:49] LABS: BASOPHILS % 0.6 % (0.0-1.0); EOSINOPHILS # (AUTO) 0.3 (0.0-0.4); EOSINOPHILS % 5.1 % (0.0-6.0); HEMATOCRIT 39.8 % (34.2-44.1); HEMOGLOBIN 12.8 g/dL (12.0-16.0); LYMPHOCYTES # (AUTO) 2.6 (1.0-3.2); LYMPHOCYTES % 41.2 % (18.0-39.1); MEAN CORPUSCULAR HEMOGLOBIN 27.1 pg (28-32); MEAN CORPUSCULAR HGB CONC 32.2 g/dL (31-35); MEAN CORPUSCULAR VOLUME 84.1 fL (81-99); MONOCYTES # (AUTO) 0.7 (0.2-0.8); MONOCYTES % 10.6 % (4.4-11.3); NEUTROPHILS # (AUTO) 2.7 (2.1-6.9); NEUTROPHILS % 42.3 % (38.7-80.0); PLATELET COUNT 311 x10e3/uL (140-360); RED BLOOD COUNT 4.73 x10e6/uL (3.6-5.1); RED CELL DISTRIBUTION WIDTH 14.4 % (11.7-14.4)
[2020-01-19 06:03] LABS: INR 0.94; PROTHROMBIN TIME 13.1 seconds (11.9-14.5)
[2020-01-19 06:17] LABS: ALANINE AMINOTRANSFERASE 26 IU/L (0-55); ALBUMIN 3.8 g/dL (3.5-5.0); ALBUMIN/GLOBULIN RATIO 1.2 (0.8-2.0); ALKALINE PHOSPHATASE 44 IU/L (40-150); ANION GAP 11.7 mmol/L (8-16); BLOOD UREA NITROGEN < 5 mg/dL (7-26); CALCIUM 9.5 mg/dL (8.4-10.2); CARBON DIOXIDE 24 mmol/L (22-29); CHLORIDE 108 mmol/L (98-107); CHOL/HDL RATIO 4.7 (3.0-3.6); CHOLESTEROL 150 MD/DL (0-199); CREATININE, SERUM 0.64 mg/dL (0.57-1.11); EST GLOMERULAR FILTRATION RATE > 60 ML/MIN (60-); GLUCOSE 103 mg/dL (74-118); HDL CHOLESTEROL 32 MG/DL (40-60); LDL CHOLESTEROL 92 MG/DL (60-130); MAGNESIUM 1.7 MG/DL (1.3-2.1); PHOSPHORUS 3.4 MG/DL (2.3-4.7); POTASSIUM 3.7 mmol/L (3.5-5.1); SODIUM 140 mmol/L (136-145); TRIGLYCERIDES 131 MG/DL (0-149)
[2020-01-19 06:19] LABS: BUN/CREATININE RATIO 8 (6-25)
[2020-01-19 06:40] LABS: THYROID STIMULATING HORMONE 0.638 uIU/mL (0.350-4.940)
[2020-01-19] MEDS ORDERED: LORATADINE/PSEUDOEPHEDRINE 24 HR SR TAB PO SCH (09:00)
[2020-01-19] MEDS ORDERED: IRON SUCROSE 100 MG in SODIUM CHLORIDE 0.9% 100 ML 100 ML IV SCH (09:00)
[2020-01-19] MEDS: INSULIN LISPRO 100 UNIT/1 ML 3ML VIAL SQ SCH ×2 (09:07→11:30)
[2020-01-19] MEDS: PANTOPRAZOLE SOD 40 MG TABEC PO SCH (09:08)
[2020-01-19] MEDS: FERROUS SULFATE 325 MG TAB PO SCH (09:08)
[2020-01-19] MEDS: LISINOPRIL 20 MG TAB PO SCH (09:09)
[2020-01-19] MEDS: AZTREONAM 1 GM/NS 50 ML 50 ML IV SCH (09:11)
[2020-01-19 09:31] VITALS: BP 125/57
[2020-01-19 10:47] VITALS: BP 125/57
[2020-01-19] MEDS ORDERED: ACETAMIN/BUTALBITAL/CAFFEINE TAB PO PRN (11:00)
[2020-01-19] MEDS ORDERED: ACETAMINOPHEN325 M1 PO (11:51)
[2020-01-19] MEDS ORDERED: Acetamin/Butalbital/Caffeine PO (11:51)
[2020-01-19] MEDS ORDERED: FERROUS SULFAT325 MG PO (11:51)
[2020-01-19 13:38] VITALS: BP 152/61
== END 2020-01-19 14:43 | disposition home or self-care (01) ==
LOC: FSED 11:22 → ERHOLD 12:19 → MED/SURG2 13:43 → INTOOBSV 01-18 10:56 → OBSVTOIN 01-18 10:56
PROVIDERS: ADMIT Internal Medicine; ATTEND Internal Medicine
DX: R10.30 Lower abdominal pain, unspecified (principal); K55.1 Chronic vascular disorders of intestine; E87.1 Hypo-osmolality and hyponatremia; N39.0 Urinary tract infection, site not specified; R51.9 Headache, unspecified; E78.5 Hyperlipidemia, unspecified; E11.65 Type 2 diabetes mellitus with hyperglycemia; K21.9 Gastro-esophageal reflux disease without esophagitis; I10 Essential (primary) hypertension; J45.909 Unspecified asthma, uncomplicated; Z90.49 Acquired absence of other specified parts of digestive tract; Z88.1 Allergy status to other antibiotic agents; Z88.0 Allergy status to penicillin; Z88.2 Allergy status to sulfonamides; Z20.828 Contact with and (suspected) exposure to other viral communicable diseases; Z79.4 Long term (current) use of insulin; E61.1 Iron deficiency
CPT/HCPCS: 36415; 74021; 74177; 80048; 80053; 80061; 80076; 81001; 81003; 82948; 83036; 83540; 83605; 83630; 83735; 83993; 84100; 84443; 84466; 85025; 85610; 87045; 87177; 87493; 99284; G0378; J1756; J2270; J2405; J7030; Q9967; U0002

== ENCOUNTER → 2020-04-07 | Day surgery (SDC) | payer MEDICARE ==
[2020-04-04 12:32] LABS: BASOPHILS % 0.4 % (0.0-1.0); EOSINOPHILS # (AUTO) 0.1 (0.0-0.4); EOSINOPHILS % 1.4 % (0.0-6.0); HEMATOCRIT 40.5 % (34.2-44.1); HEMOGLOBIN 13.2 g/dL (12.0-16.0); LYMPHOCYTES # (AUTO) 2.8 (1.0-3.2); LYMPHOCYTES % 36.8 % (18.0-39.1); MEAN CORPUSCULAR HEMOGLOBIN 27.7 pg (28-32); MEAN CORPUSCULAR HGB CONC 32.6 g/dL (31-35); MEAN CORPUSCULAR VOLUME 84.9 fL (81-99); MONOCYTES # (AUTO) 0.6 (0.2-0.8); MONOCYTES % 7.2 % (4.4-11.3); NEUTROPHILS # (AUTO) 4.1 (2.1-6.9); NEUTROPHILS % 53.8 % (38.7-80.0); PLATELET COUNT 280 x10e3/uL (140-360); RED BLOOD COUNT 4.77 x10e6/uL (3.6-5.1); RED CELL DISTRIBUTION WIDTH 14.4 % (11.7-14.4)
[~2020-04-07] MED LIST changes: +ACETAMINOPHEN325 M1 PO; +AMLODIPINE BESY10 MG; +AMLODIPINE BESY10 MG PO; +Acetamin/Butalbital/Caffeine PO; +ESTRADIOL0.5 MG; +FERROUS SULFAT325 MG PO; +HYOSCYAMINE 0.125 MG TAB ONE; +HYOSCYAMINE SULFATE 0.5 MG/ML INJ ONE; +LANTUS 3ML100 UNITS/ SQ; +LIDOCAINE HCL 2% LOCAL INJ 5 ML SDV VIAL INJ ONE; +ONDANSETRON HCL INJ 2MG/ML 2ML 2 MG/ML VIAL ONE; +ONDANSETRON HCL8 MG PO; +PROPOFOL IV EMULSION 10 MG/ML 20 ML VIAL ONE; +ROSUVASTATIN CA10 MG; +TIZANIDINE HCL4 MG PO; +ZOLPIDEM TARTRAT5 MG
[2020-04-07 12:00] VITALS: BP 124/62
== END | disposition home or self-care (01) ==
LOC: OR 08:05
PROVIDERS: ATTEND Internal Medicine Gastroenterology
DX: K59.00 Constipation, unspecified (principal); Z86.010 Personal history of colon polyps; K62.1 Rectal polyp; K57.30 Diverticulosis of large intestine without perforation or abscess without bleeding; K63.89 Other specified diseases of intestine; K64.8 Other hemorrhoids; I10 Essential (primary) hypertension; E11.9 Type 2 diabetes mellitus without complications; J45.909 Unspecified asthma, uncomplicated; Z88.2 Allergy status to sulfonamides; Z88.1 Allergy status to other antibiotic agents; Z91.010 Allergy to peanuts; Z01.810 Encounter for preprocedural cardiovascular examination; Z01.812 Encounter for preprocedural laboratory examination; Z20.822 Contact with and (suspected) exposure to COVID-19; Z80.0 Family history of malignant neoplasm of digestive organs
CPT/HCPCS: 36415 ×2; 45380; 82948; 85025; 93005; J1980; J2001; J2405; J2704; U0002; 45378

== ENCOUNTER → 2020-10-03 | Outpatient (CLI) | payer MEDICARE ==
[~2020-10-03] MED LIST changes: +FENTANYL CITRATE/PF 100MCG/2 ML INJ ONE; +GADOBENATE DIMEGLUMINE 1 ML IV ONE; -HYOSCYAMINE 0.125 MG TAB ONE; -HYOSCYAMINE SULFATE 0.5 MG/ML INJ ONE; +LACTATED RINGER'S 1,000 ML ONE; -LIDOCAINE HCL 2% LOCAL INJ 5 ML SDV VIAL INJ ONE; +MIDAZOLAM HCL 5 MG/ML VIAL ONE; -ONDANSETRON HCL INJ 2MG/ML 2ML 2 MG/ML VIAL ONE; -PROPOFOL IV EMULSION 10 MG/ML 20 ML VIAL ONE; +SODIUM CHLORIDE 0.9% 50ML 50 ML ONE
[2020-10-03 10:42] LABS: BASOPHILS # (AUTO) 0.1 (0.0-0.1); BASOPHILS % 0.6 % (0.0-1.0); EOSINOPHILS # (AUTO) 0.2 (0.0-0.4); EOSINOPHILS % 1.7 % (0.0-6.0); HEMATOCRIT 42.9 % (34.2-44.1); HEMOGLOBIN 14.1 g/dL (12.0-16.0); LYMPHOCYTES # (AUTO) 3.4 (1.0-3.2); LYMPHOCYTES % 31.4 % (18.0-39.1); MEAN CORPUSCULAR HEMOGLOBIN 28.8 pg (28-32); MEAN CORPUSCULAR HGB CONC 32.9 g/dL (31-35); MEAN CORPUSCULAR VOLUME 87.6 fL (81-99); MONOCYTES # (AUTO) 0.9 (0.2-0.8); MONOCYTES % 8.2 % (4.4-11.3); NEUTROPHILS # (AUTO) 6.3 (2.1-6.9); NEUTROPHILS % 57.7 % (38.7-80.0); PLATELET COUNT 327 x10e3/uL (140-360); RED CELL DISTRIBUTION WIDTH 13.5 % (11.7-14.4)
[2020-10-03 11:00] LABS: ANION GAP 16.2 mmol/L (8-16); CALCIUM 9.8 mg/dL (8.4-10.2); CREATININE, SERUM 0.76 mg/dL (0.57-1.11); POTASSIUM 4.2 mmol/L (3.5-5.1)
== END ==
LOC: MRI 10:20
PROVIDERS: ATTEND Internal Medicine Gastroenterology
DX: K86.2 Cyst of pancreas (principal)
CPT/HCPCS: 36415; 71045; 74183; 80048; 85025; 93005; A9577; J2250; J3010; J7121

== ENCOUNTER → 2023-02-04 | Outpatient (REF) | payer MEDICARE ==
[~2023-02-04] MED LIST changes: +ALLEGRA ALLERGY60 MG PO; +CREON DR 12,001 EACH PO; -FENTANYL CITRATE/PF 100MCG/2 ML INJ ONE; +FEROSUL325 MG PO; -GADOBENATE DIMEGLUMINE 1 ML IV ONE; -LACTATED RINGER'S 1,000 ML ONE; -MIDAZOLAM HCL 5 MG/ML VIAL ONE; +MUCINEX D ER T1 EAC1 PO; +POTASSIUM CHLO20 ME1 PO; -SODIUM CHLORIDE 0.9% 50ML 50 ML ONE; +STOOL SOFTENER50 MG; +ZESTRIL20 MG PO; +ZOLPIDEM TARTRAT5 MG PO
== END ==
LOC: US 08:21
PROVIDERS: ATTEND Nurse Practitioner
DX: K76.0 Fatty (change of) liver, not elsewhere classified (principal)
CPT/HCPCS: 76700

== ENCOUNTER → 2024-04-15 | Outpatient (REF) | payer MEDICARE ==
[~2024-04-15] MED LIST changes: +CELEBREX200 MG PO; +IOPAMIDOL 370 MG/ML 100 ML INFUS..BTL INJ ONE; +MACROBID 100 M100 MG PO; +MECLIZINE HCL12.5 MG PO
[2024-04-15 16:27] LABS: CREATININE, SERUM 0.65 mg/dL (0.57-1.11)
== END ==
LOC: CT 15:42
PROVIDERS: ATTEND Nurse Practitioner
DX: K86.2 Cyst of pancreas (principal); K86.89 Other specified diseases of pancreas
CPT/HCPCS: 36415; 74177; 82565; 84520; Q9967

== ENCOUNTER 2024-08-20 10:00 | Inpatient (IN) | payer MEDICARE ==
[~2024-08-20] VITALS: Ht 162.6 cm; Wt 74.8 kg
[~2024-08-20 10:00] MED LIST changes: -IOPAMIDOL 370 MG/ML 100 ML INFUS..BTL INJ ONE
[2024-08-20 11:11] LABS: ALBUMIN 4.4 g/dL (3.5-5.0); ALBUMIN/GLOBULIN RATIO 1.3 (0.8-2.0); ANION GAP 21.1 mmol/L (8-16); BILIRUBIN,TOTAL 0.4 mg/dL (0.2-1.2); CALCIUM 10.1 mg/dL (8.4-10.2); CREATININE, SERUM 1.18 mg/dL (0.57-1.11); POTASSIUM 4.1 mmol/L (3.5-5.1); TOTAL PROTEIN 7.9 g/dL (6.5-8.1)
[2024-08-20] MEDS ORDERED: IOPAMIDOL 370 MG/ML 100 ML INFUS..BTL INJ ONE (11:16)
[2024-08-20 11:39] LABS: BASOPHILS % 0.1 % (0.0-1.0); HEMATOCRIT 45.8 % (34.2-44.1); HEMOGLOBIN 15.3 g/dL (12.0-16.0); LYMPHOCYTES # (AUTO) 1.5 (1.0-3.2); LYMPHOCYTES % 6.8 % (18.0-39.1); MEAN CORPUSCULAR HGB CONC 33.4 g/dL (31-35); MEAN CORPUSCULAR VOLUME 86.9 fL (81-99); MONOCYTES # (AUTO) 1.6 (0.2-0.8); MONOCYTES % 7.2 % (4.4-11.3); NEUTROPHILS % 85.5 % (38.7-80.0); PLATELET COUNT 627 x10e3/uL (140-360); RED BLOOD COUNT 5.27 x10e6/uL (3.6-5.1); WHITE BLOOD COUNT 22.22 x10e3/uL (4.8-10.8)
[2024-08-20] MEDS: SODIUM CHLORIDE 0.9% 1000ML 1,000 ML IV STA (11:44)
[2024-08-20] MEDS ORDERED: Morphine 4mg INJECTION 4 MG/ML INJ IV PRN (12:45)
[2024-08-20] MEDS ORDERED: SODIUM CHLORIDE 0.9% 1000ML 1,000 ML IV SCH (12:45)
[2024-08-20 13:31] VITALS: PULSE 79; RESP 18; O2SAT 97
[2024-08-20] MEDS: VANCOMYCIN HCL 125 MG CAPSULE PO SCH (14:15)
[2024-08-20] MEDS: METRONIDAZOLE 500MG/NS 100ML 100 ML IV SCH (14:16)
[2024-08-20] MEDS: SODIUM CHLORIDE 0.9% 1000ML 1,000 ML IV SCH (14:17)
[2024-08-20 14:30] VITALS: PULSE 71; RESP 18; TEMP 98.7
[2024-08-20] MEDS: ONDANSETRON HCL INJ 2MG/ML 2ML 2 MG/ML VIAL IV PRN (16:02)
[2024-08-20 16:07] VITALS: BP 142/85; PULSE 79; RESP 18; O2SAT 98
[2024-08-20 16:32] VITALS: BP 121/87; PULSE 73; RESP 18; TEMP 98; O2SAT 99
[2024-08-20] MEDS ORDERED: NOVOLOG100 UNIT/1 SC (16:43)
[2024-08-20] MEDS ORDERED: POLYETHYLENE GLYCOL 3350 17 GM PACK PO PRN (17:00)
[2024-08-20] MEDS: DOCUSATE SODIUM 100 MG CAP PO SCH (17:00)
[2024-08-20] MEDS ORDERED: ONDANSETRON HCL INJ 2MG/ML 2ML 2 MG/ML VIAL IV PRN (17:00)
[2024-08-20] MEDS: ACETAMINOPHEN 325 MG TAB PO PRN (17:42)
[2024-08-20 19:55] VITALS: PULSE 75; RESP 18; O2SAT 97
[2024-08-20 20:00] VITALS: BP 167/70; PULSE 72; RESP 18; TEMP 98.1; O2SAT 96
[2024-08-20] MEDS: FERROUS SULFATE 325 MG TAB PO SCH (20:15)
[2024-08-20] MEDS: AMYLAS/CELLU/LIPAS/PROTEA/BILE 12,000 UNIT CAP PO SCH (20:15)
[2024-08-20] MEDS ORDERED: HYDRALAZINE HCL 20 MG/ML VIAL IV PRN (20:15)
[2024-08-20] MEDS: GUAIFENESIN 600MG/DEXTROMETHORPHAN 30MG TABSR PO SCH (20:15)
[2024-08-20] MEDS: POTASSIUM CHLORIDE 20 MEQ TAB CR PO SCH (20:15)
[2024-08-20] MEDS: AMLODIPINE BESYLATE 10 MG TAB PO SCH (21:11)
[2024-08-20] MEDS: FAMOTIDINE 20 MG TAB PO SCH (21:11)
[2024-08-20] MEDS: MECLIZINE HCL 12.5 MG TAB PO SCH (21:11)
[2024-08-20] MEDS: MEROPENEM 1 GM in SODIUM CHLORIDE 0.9% 100 ML IV SCH (21:16)
[2024-08-20] MEDS ORDERED: SODIUM CHLORIDE 0.9% 100 ML ONE (21:16)
[2024-08-21] VITALS (8 sets, daily range): BP systolic 127–193; BP diastolic 49–72; PULSE 68–88; RESP 17–20; TEMP 98.2–99.2; O2SAT 96–100
[2024-08-21] MEDS: DICYCLOMINE HCL 20 MG TAB PO STA (01:19)
[2024-08-21] MEDS: HYDRALAZINE HCL 20 MG/ML VIAL IV PRN (01:20)
[2024-08-21 04:37] LABS: WBC,FECAL (FECAL LACTOFERRIN) POSITIVE (NEGATIVE)
[2024-08-21 04:40] LABS: CDIFF AG QUIK CHEK NEGATIVE (NEGATIVE); CDIFF TOX QUIK CHEK NEGATIVE (NEGATIVE)
[2024-08-21 05:03] LABS: BASOPHILS % 0.2 % (0.0-1.0); EOSINOPHILS % 0.1 % (0.0-6.0); HEMATOCRIT 41.8 % (34.2-44.1); HEMOGLOBIN 13.9 g/dL (12.0-16.0); LYMPHOCYTES # (AUTO) 3.2 (1.0-3.2); LYMPHOCYTES % 16.5 % (18.0-39.1); MEAN CORPUSCULAR HEMOGLOBIN 29.3 pg (28-32); MEAN CORPUSCULAR HGB CONC 33.3 g/dL (31-35); MONOCYTES # (AUTO) 2.1 (0.2-0.8); MONOCYTES % 10.8 % (4.4-11.3); NEUTROPHILS # (AUTO) 14.1 (2.1-6.9); PLATELET COUNT 546 x10e3/uL (140-360); RED BLOOD COUNT 4.75 x10e6/uL (3.6-5.1); WHITE BLOOD COUNT 19.62 x10e3/uL (4.8-10.8)
[2024-08-21 05:44] LABS: ANION GAP 17.3 mmol/L (8-16); CALCIUM 8.6 mg/dL (8.4-10.2); CHOL/HDL RATIO 1.9 (3.0-3.6); CREATININE, SERUM 0.72 mg/dL (0.57-1.11); MAGNESIUM 1.9 MG/DL (1.3-2.1); PHOSPHORUS 2.4 MG/DL (2.3-4.7)
[2024-08-21 05:53] LABS: POTASSIUM 3.3 mmol/L (3.5-5.1)
[2024-08-21 05:57] LABS: FREE T4 (FREE THYROXINE) 1.2 ng/dL (0.8-1.8); THYROID STIMULATING HORMONE 0.242 uIU/mL (0.350-4.940)
[2024-08-21] MEDS: DICYCLOMINE HCL 10 MG CAP PO SCH (06:12)
[2024-08-21] MEDS: METOCLOPRAMIDE HCL 10 MG/2ML VIAL IV SCH (06:12)
[2024-08-21] MEDS: ASCORBIC ACID 500 MG TAB PO SCH (09:50)
[2024-08-21] MEDS: POTASSIUM CHLORIDE 10MEQ EA PO ONE (09:51)
[2024-08-22] VITALS (8 sets, daily range): BP systolic 127–174; BP diastolic 44–80; PULSE 66–78; RESP 17–18; TEMP 98.2–98.8; O2SAT 95–100
[2024-08-22 06:56] LABS: BASOPHILS # (AUTO) 0.1 (0.0-0.1); BASOPHILS % 0.4 % (0.0-1.0); EOSINOPHILS # (AUTO) 0.2 (0.0-0.4); EOSINOPHILS % 1.1 % (0.0-6.0); HEMATOCRIT 34.8 % (34.2-44.1); HEMOGLOBIN 11.6 g/dL (12.0-16.0); LYMPHOCYTES # (AUTO) 4.5 (1.0-3.2); MEAN CORPUSCULAR HEMOGLOBIN 29.5 pg (28-32); MEAN CORPUSCULAR HGB CONC 33.3 g/dL (31-35); MEAN CORPUSCULAR VOLUME 88.5 fL (81-99); MONOCYTES # (AUTO) 1.7 (0.2-0.8); MONOCYTES % 11.2 % (4.4-11.3); NEUTROPHILS # (AUTO) 8.5 (2.1-6.9); PLATELET COUNT 448 x10e3/uL (140-360); RED BLOOD COUNT 3.93 x10e6/uL (3.6-5.1); RED CELL DISTRIBUTION WIDTH 15.1 % (11.7-14.4)
[2024-08-22 07:40] LABS: ANION GAP 12.4 mmol/L (8-16); CALCIUM 8.2 mg/dL (8.4-10.2); CREATININE, SERUM 0.55 mg/dL (0.57-1.11); MAGNESIUM 1.7 MG/DL (1.3-2.1)
[2024-08-22 07:44] LABS: POTASSIUM 3.4 mmol/L (3.5-5.1)
[2024-08-22] MEDS: LISINOPRIL 20 MG TAB PO SCH (09:22)
[2024-08-22] MEDS: DICYCLOMINE HCL 20 MG TAB PO SCH (09:22)
[2024-08-22] MEDS: MAGNESIUM SULF 1GRAM/DEXTROSE 100 ML IV ONE (11:56)
[2024-08-22] MEDS: POTASSIUM CHLORIDE 10MEQ EA PO ONE (11:57)
[2024-08-22] MEDS: LORATADINE 10 MG TAB PO SCH (11:57)
[2024-08-23] VITALS: BP 151/68; PULSE 73; RESP 18; TEMP 98.3; O2SAT 98
[2024-08-23 04:00] VITALS: BP 136/72; PULSE 73; RESP 18; TEMP 98.3; O2SAT 99
[2024-08-23 05:41] LABS: BASOPHILS # (AUTO) 0.1 (0.0-0.1); BASOPHILS % 0.7 % (0.0-1.0); EOSINOPHILS # (AUTO) 0.3 (0.0-0.4); EOSINOPHILS % 2.8 % (0.0-6.0); HEMATOCRIT 33.8 % (34.2-44.1); HEMOGLOBIN 11.4 g/dL (12.0-16.0); LYMPHOCYTES # (AUTO) 5.1 (1.0-3.2); LYMPHOCYTES % 42.4 % (18.0-39.1); MEAN CORPUSCULAR HEMOGLOBIN 29.5 pg (28-32); MEAN CORPUSCULAR HGB CONC 33.7 g/dL (31-35); MEAN CORPUSCULAR VOLUME 87.3 fL (81-99); MONOCYTES # (AUTO) 1.4 (0.2-0.8); MONOCYTES % 11.5 % (4.4-11.3); NEUTROPHILS % 42.2 % (38.7-80.0); PLATELET COUNT 493 x10e3/uL (140-360); RED BLOOD COUNT 3.87 x10e6/uL (3.6-5.1); RED CELL DISTRIBUTION WIDTH 14.7 % (11.7-14.4); WHITE BLOOD COUNT 11.93 x10e3/uL (4.8-10.8)
[2024-08-23 06:11] LABS: ANION GAP 14.5 mmol/L (8-16); CALCIUM 8.5 mg/dL (8.4-10.2); CREATININE, SERUM 0.56 mg/dL (0.57-1.11); MAGNESIUM 1.8 MG/DL (1.3-2.1); POTASSIUM 3.5 mmol/L (3.5-5.1)
[2024-08-23 08:00] VITALS: BP 142/75; PULSE 77; RESP 17; TEMP 98; O2SAT 99
[2024-08-23] MEDS: POTASSIUM CHLORIDE 10MEQ EA PO ONE (09:09)
[2024-08-23 11:02] VITALS: BP 142/75; PULSE 77; RESP 17; TEMP 98; O2SAT 99
[2024-08-23 12:00] VITALS: BP 158/76; PULSE 68; RESP 18; TEMP 98; O2SAT 100
[2024-08-23] MEDS: METRONIDAZOLE 500 MG TAB PO SCH (13:02)
[2024-08-23 16:00] VITALS: BP 140/79; PULSE 74; RESP 18; TEMP 98.3; O2SAT 100
[2024-08-23] MEDS ORDERED: METRONIDAZOLE500 MG PO (17:08)
[2024-08-23] MEDS ORDERED: REGLAN10 MG PO (17:14)
== END 2024-08-23 18:50 | disposition home or self-care (01) | DRG 372 ==
LOC: ER 10:17 → ERHOLD 12:44 → MED/SURG2 14:39
PROVIDERS: ADMIT Internal Medicine; ATTEND Internal Medicine
DX: A04.9 Bacterial intestinal infection, unspecified (principal); E87.20 Acidosis, unspecified; E66.9 Obesity, unspecified; I10 Essential (primary) hypertension; E11.9 Type 2 diabetes mellitus without complications; J45.909 Unspecified asthma, uncomplicated; E86.0 Dehydration; J32.9 Chronic sinusitis, unspecified; E87.6 Hypokalemia; E83.42 Hypomagnesemia; R53.1 Weakness; R11.2 Nausea with vomiting, unspecified; K21.9 Gastro-esophageal reflux disease without esophagitis; Z90.411 Acquired partial absence of pancreas; Z68.28 Body mass index [BMI] 28.0-28.9, adult; Z79.4 Long term (current) use of insulin; Z79.84 Long term (current) use of oral hypoglycemic drugs; Z90.81 Acquired absence of spleen; Z80.0 Family history of malignant neoplasm of digestive organs; Z80.42 Family history of malignant neoplasm of prostate; Z87.891 Personal history of nicotine dependence; Z88.0 Allergy status to penicillin; Z88.2 Allergy status to sulfonamides; Z88.8 Allergy status to other drugs, medicaments and biological substances; Z86.16 Personal history of COVID-19; Z88.1 Allergy status to other antibiotic agents; Z91.040 Latex allergy status
CPT/HCPCS: 36415; 74177; 80048; 80053; 80061; 83036; 83605; 83630; 83735; 83993; 84100; 84439; 84443; 85025; 87040; 87045; 87177; 87324; 87449; 94799; 99284; J0360; J2185; J2405; J2470; J2765; J3475; J7030; J7050; Q9967